=== PATIENT | male | born 1965 | race Caucasian/White ===

== ENCOUNTER 2025-03-31 13:13 | Outpatient (CLI) | payer MEDICAID, SELFPAY ==
--- NOTE | ~2025-03-31 | MR_ITS ---
MRI of the lumbar spine Clinical History: Back pain Technique: Axial T2-weighted images, and sagittal T1-weighted, T2-weighted, and T2 fat-sat images wer e acquired. Findings: No fracture seen. There is 7 mm anterolisthesis of L4 over L5. Probable developing Schmorl' s node at the inferior endplate region of L3. At L1-L2, there is advanced degenerative disc narrowing. There is moderate facet arthropathy with min imal disc bulge. No spinal canal stenosis. There is moderate bilateral neural foraminal narrowing. At L2-L3, there is no disc bulge or herniation. No spinal canal stenosis or neural foraminal narrowin g. At L3-L4, there is degenerative distended with mild disc bulge and moderate facet arthropathy. No yaritza tral canal stenosis. There is moderate to advanced right neural foraminal narrowing, and moderate lef t neural foraminal narrowing. At L4-L5, there is degenerative distended with disc bulge and severe facet arthropathy. No central ca nal stenosis. There is severe bilateral neural foraminal compromise. At L5-S1, there is minimal disc bulge with advanced facet arthropathy. No central canal stenosis. The re is advanced bilateral neural foraminal conference. Paravertebral soft tissues are unremarkable. Impression: Moderate to severe degenerative spondylosis, as detailed above, with multilevel neural foraminal narr owing. 7 mm anterolisthesis of L4 over L5. Probable developing Schmorl's node at L3, as detailed above. Reviewed, dictated and finalized at [facility]. Impression: Moderate to severe degenerative spondylosis, as detailed above, with multilevel neural foraminal narrowing. 7 mm anterolisthesis of L4 over L5. Probable developing Schmorl's node at L3, as detailed above.
--- NOTE | ~2025-03-31 | MR_ITS ---
MRI of the cervical spine Clinical History: Pain Technique: Axial T2-weighted and gradient images, and sagittal T1-weighted, T2-weighted, and STIR ab ges were acquired. Findings: There is no fracture or subluxation of the cervical spine. Vertebral bodies maintain normal height and alignment. No suspicious bone marrow signal abnormality seen. At C2-C3, there is moderate degenerative disc narrowing. There is osteophyte formation at the left fo raminal region with bilateral facet arthropathy, left worse than right. There is left neural foramina l narrowing. Right neural foramen preserved. No canal stenosis or cord compression. At C3-C4, there is degenerative disc narrowing with disc osteophyte convex and bilateral facet arthro michelle. There is mild canal stenosis without roberth cord compression. There is bilateral significant ne ural foraminal narrowing, left worse than right. At C4-C5, there is degenerative disc narrowing, with mild disc osteophyte complex. There is mild to m oderate bilateral neural foraminal narrowing. There is minimal canal stenosis without roberth cord comp ression. At C5-C6, there is degenerative disc narrowing with mild disc osteophyte complex. There is bilateral facet arthropathy, left worse than right. There is bilateral neural foraminal narrowing. No roberth can al stenosis or cord compression. At C6-C7, there is disc osteophyte complex with bilateral neural foraminal narrowing. There is mild c anal stenosis without roberth cord compression. No abnormal signal seen in the spinal cord. Paravertebral soft tissues are unremarkable. Impression: Moderate to advanced degenerative spondylosis, as above. Reviewed, dictated and finalized at location . Impression: Moderate to advanced degenerative spondylosis, as above.
== END 2025-03-31 13:14 | disposition home or self-care (01) ==
LOC: MICIMG 13:14
PROVIDERS: PCP Emergency Medicine; Visit Provider Emergency Medicine
DX: M47.892 Other spondylosis, cervical region (principal); M47.896 Other spondylosis, lumbar region; M43.16 Spondylolisthesis, lumbar region
CPT/HCPCS: 72141; 72148